=== PATIENT | female | born 1990 | race Caucasian/White ===

== ENCOUNTER 2019-08-04 18:00 | Emergency (ER) | payer MEDICAID ==
[2019-08-04] MEDS: KETOROLAC 60 MG INJ IM (18:59)
[2019-08-04] MEDS: KETOROLAC 30 MG INJ IV (19:01)
== END 2019-08-04 20:34 | disposition home or self-care (01) ==
LOC: E/R 18:00
DX: R07.89 Other chest pain (principal)
CPT/HCPCS: 71045; 81025; 93005; 96374; 99284-25